=== PATIENT | female | born 1990 | race Caucasian/White ===

== ENCOUNTER 2017-06-04 11:16 | Emergency (ER) | payer OTHER ==
[~2017-06-04] VITALS: Ht 170.2 cm; Wt 59.0 kg
[~2017-06-04 11:16] MED LIST: BACTRIM DS TAB1 EACH; BENADRYL25 M1 PO; CLARITHROMYCIN500 MG; HYDROCODON-ACE1 EA11 PO; LOESTRIN1 EAC1; LOESTRIN1 EAC1 PO; MYRBETRIQ50 MG PO; RELPAX40 MG PO; URIBEL CAPSULE1 EACH PO
--- OUTSIDE RECORDS SUMMARY | 2017-06-04 11:19 | XMS REPORT ---
[facility] Address Unknown Phone Unavailable Care Team Providers Care Senior [email or web address] Developer Name Role Phone GARRY GAITAN Unavailable Unavailable Problems This patient has no known problems. Allergies, Adverse Reactions, Alerts This patient has no known allergies or adverse reactions. Medications This patient has no known medications. Results Test Description Test Time Test Comments Text Results Atomic Results Result Comments CT BRAIN WO [place] [address] Patient Name: KATIE MCKEON MR #: [id number] : 1990 Age/Sex: 26/F Req #: [id number] Adm Physician: Ordered by: BEATA SHAIKH Report #: [id number] Location: ER Room/Bed: Procedure: [id number] CT/CT BRAIN WO Exam Date: 03/21/17 Exam Time: 1130 REPORT STATUS: Signed Exam: Head CT without contrast History: Right- sided headache, migraine, nausea, visual changes. Comparison studies: Brain MRI 02/18/2015. Technique: Axial images were obtained from the skull base to the vertex. Coronal and sagittal images reconstructed from the axial data. Intravenous contrast: None Findings: Scalp: No abnormalities. Bones: No fractures, blastic or lytic lesions. Brain sulci: Appropriate for age. Ventricles: Normal in size and configuration. No hydrocephalus. Extra-axial spaces: No masses, no fluid collection. Parenchyma: No abnormal densities. No masses, acute hemorrhage, acute or chronic vascular insults. Sellar/suprasellar region: No abnormalities. Craniocervical junction: Patent foramen magnum. No Chiari one malformation. IMPRESSION : 1. No intracranial abnormalities. 2. No changes from the previous brain MRI 02/18/2015 when allowing for differences in imaging modality. Signed by: Dr. Richa Serna M.D. on 03/21/2017 11:51 AM Dictated By: RICHA SERNA MD [id number] Transcribed By: PRIETO on 03/21/17 1151 COPY TO: BEATA SHAIKH
[2017-06-04] MEDS ORDERED: KETOROLAC TROMETHAMINE 30 MG/ML VIAL IV STA (11:33)
[2017-06-04] MEDS ORDERED: SODIUM CHLORIDE 0.9% 500ML 500 ML IV ONE (11:45)
[2017-06-04] MEDS ORDERED: METOCLOPRAMIDE HCL 10 MG/2ML VIAL IV ONE (11:45)
[2017-06-04] MEDS ORDERED: DIPHENHYDRAMINE HCL INJ 50 MG/ML VIAL IV ONE (11:45)
[2017-06-04] MEDS ORDERED: DEXAMETHASONE SOD PHOS 10 MG/1 ML VIAL IV ONE (11:45)
[2017-06-04 13:50] VITALS: BP 116/74
== END 2017-06-04 13:58 | disposition home or self-care (01) ==
LOC: ER 11:16
DX: G43.109 Migraine with aura, not intractable, without status migrainosus (principal)
CPT/HCPCS: 99283; J1100; J1200; J1885; J2765; J7040